=== PATIENT | female | born 1945 | race Caucasian/White ===

== ENCOUNTER → 2016-10-22 | Outpatient (CLI) | payer OTHER, MEDICARE | LOC: BMCIMAGING 09:14 | DX: Z12.31 Encounter for screening mammogram for malignant neoplasm of breast (principal); Z80.3 Family history of malignant neoplasm of breast | CPT/HCPCS: G0202 ==

== ENCOUNTER → 2016-11-06 | Outpatient (CLI) | payer OTHER, MEDICARE | LOC: BMCIMAGING 12:47 | DX: N60.01 Solitary cyst of right breast (principal) ==

== ENCOUNTER → 2017-04-15 | Outpatient (CLI) | payer OTHER, MEDICARE ==
[~2017-04-15] MED LIST: DEPO METHYLPREDNISOLONE 40 MG/ML SDV ONE; DEPO METHYLPREDNISOLONE 80 MG/ML SDV ONE; IOPAMIDOL (ISOVUE 370) 100 ML BTL IV ONE; LIDOCAINE 1% 300 MG/30 ML SDV ONE; ROPIVACAINE HCL 150 MG/30 ML INJ ONE
== END ==
LOC: FIMAGING 10:17
PROVIDERS: ATTEND Orthopaedic Surgery
PROC: 3E0U33Z Introduction of Anti-inflammatory into Joints, Percutaneous Approach (ICD-10-PCS; principal; 2017-04-15)
PROC: 3E0U3BZ Introduction of Anesthetic Agent into Joints, Percutaneous Approach (ICD-10-PCS; principal; 2017-04-15)
DX: M25.551 Pain in right hip (principal)
CPT/HCPCS: 20610; J1040; J2795; Q9967; J1030

== ENCOUNTER → 2017-11-01 | Outpatient (CLI) | payer OTHER, MEDICARE | LOC: FIMAGING 10:06 | PROVIDERS: ATTEND Orthopaedic Surgery | DX: M16.11 Unilateral primary osteoarthritis, right hip (principal); M46.96 Unspecified inflammatory spondylopathy, lumbar region; M46.97 Unspecified inflammatory spondylopathy, lumbosacral region ==

== ENCOUNTER 2017-11-05 05:59 | Inpatient (IN) | payer OTHER, MEDICARE ==
[2017-11-05] MEDS ORDERED: ROPIVACAINE 0.2% 80 MG, EPINEPHrine 0.2 MG, KETOROLAC TROMETHAMINE 30 MG in SYRINGE 0 ML IU ONE (06:00)
[2017-11-05] MEDS ORDERED: TRANEXAMIC ACID 3,000 MG in NS (SYRINGE) 50 ML IRR ONE (06:00)
[2017-11-05] MEDS ORDERED: BUPI/epINEPH/KETOROLAC IU ONE (06:00)
[2017-11-05] MEDS ORDERED: FAMOTIDINE 20 MG TAB PO ONE (06:15)
[2017-11-05] MEDS ORDERED: ceFAZolin 2 GM/SWFI 2 GM/20 ML SYR IVP ONE (06:15)
[2017-11-05] MEDS ORDERED: DEXAMETHASONE 4 MG/ML VIAL IVP ONE (06:15)
[2017-11-05] MEDS ORDERED: ACETAMINOPHEN 325 MG TAB PO ONE (06:15)
--- NOTE | 2017-11-05 06:28 | PDHPUP ---
History & Physical Update H&P update statement: This history and physical update is based on an assessment of the patient which was completed after admission or registration (within 24 hours), but prior to the surgery/procedure. H&P update: H&P reviewed & patient examined, no change in patient's condition since H&P completed
[2017-11-05] MEDS ORDERED: LR 1,000 ML IV ONE (06:43)
[2017-11-05] MEDS ORDERED: TRANEXAMIC ACID 3,000 MG/50 ML BAG IRR ONE (06:52)
[2017-11-05] MEDS ORDERED: MIDAZOLAM 2 MG/2 ML VIAL IVP ONE (07:27)
[2017-11-05] MEDS ORDERED: fentaNYL 100 MCG/2 ML INJ ONE ×2 (07:30→11:46)
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
[2017-11-05] MEDS ORDERED: PROPOFOL 200 MG/20 ML VIAL ONE ×2 (08:11→09:16)
[2017-11-05] MEDS ORDERED: GABAPENTIN 300 MG PO PRN (08:43)
[2017-11-05] MEDS ORDERED: ONDANSETRON DISINTEGRATING 4 MG TAB PO PRN (08:44)
[2017-11-05] MEDS ORDERED: METOCLOPRAMIDE 10 MG/2 ML VIAL IVP PRN (08:44)
[2017-11-05] MEDS ORDERED: BISACODYL 10 MG SUPP PR PRN (08:44)
[2017-11-05] MEDS ORDERED: MAGNESIUM HYDROXIDE 30 ML UDCUP PO PRN (08:44)
[2017-11-05] MEDS ORDERED: ONDANSETRON 4 MG/2 ML VIAL IVP PRN (08:44)
[2017-11-05] MEDS ORDERED: PROMETHAZINE HCL 25 MG/ML INJ IVP PRN (08:44)
[2017-11-05] MEDS ORDERED: diphenhydrAMINE 25 MG CAP PO PRN (08:44)
[2017-11-05] MEDS ORDERED: TEMAZEPAM 15 MG CAP PO PRN (08:44)
[2017-11-05] MEDS ORDERED: LACTULOSE 20 GM/30 ML UDCUP PO PRN (08:44)
[2017-11-05] MEDS ORDERED: POLYETHYLENE GLYCOL 3350 17 GM PKT PO PRN (08:44)
[2017-11-05] MEDS ORDERED: DIPHENOXYLATE/ATROPINE LOMOTIL 1 TAB PO PRN (08:44)
[2017-11-05] MEDS ORDERED: PROMETHAZINE HCL 25 MG SUPPR PR PRN (08:44)
[2017-11-05] MEDS ORDERED: fentaNYL 100 MCG/2 ML INJ IVP PRN (08:58)
[2017-11-05] MEDS ORDERED: NALOXONE HCL 0.4 MG/ML INJ IVP PRN (08:58)
[2017-11-05] MEDS ORDERED: LABETALOL HCL 5 MG/ML 20 ML MDV IVP PRN (08:58)
[2017-11-05] MEDS ORDERED: ALBUTEROL 3 ML DEYVIAL IH PRN (08:58)
[2017-11-05] MEDS ORDERED: MEPERIDINE 25 MG/ML SYR IVP PRN (08:58)
[2017-11-05] MEDS ORDERED: HYDROmorphONE/DILAUDID 1 MG/ML INJ IVP PRN (08:58)
[2017-11-05] MEDS ORDERED: LR 500 ML IV PRN (08:58)
[2017-11-05] MEDS ORDERED: LR 1,000 ML IV SCH (09:00)
[2017-11-05] MEDS ORDERED: HYDROmorphONE/DILAUDID 2 MG/ML INJ IVP PRN (09:25)
[2017-11-05] MEDS ORDERED: GABAPENTIN 300 MG CAP PO PRN (09:26)
--- NOTE | 2017-11-05 09:57 | POSTOPPROG ---
Post Op Note Date of Operation: 11/05/17 Surgeon: Sonny Christian Meat Manager: keshia christian Anesthesiologist: dr. alcantara Anesthesia: Spinal Pre-op Diagnosis: right hip OA Post-op Diagnosis: same Indication: right hip pain Procedure: R SRAVANI Findings: severe hip OA Inf/Abcess present in the surg proc area at time of surgery?: No EBL: 100-500
[2017-11-05] MEDS ORDERED: oxyCODONE IR 5 MG TAB ONE (11:47)
[2017-11-05] MEDS ORDERED: ACETAMINOPHEN 325 MG TAB ONE (11:47)
[2017-11-05] MEDS: ACETAMINOPHEN 325 MG TAB PO SCH ×2 (11:51→17:17)
[2017-11-05] MEDS: oxyCODONE IR 5 MG TAB PO PRN ×2 (11:56→21:18)
--- NOTE | 2017-11-05 11:58 | POSTANESTH ---
Post Anesthetic Evaluation Cardiovascular Status: Normal, Stable Respiratory Status: Normal, Stable Level of Consciousness/Mental Status: Can Participate in Eval Pain Control: Adequate, Prn Tx Ordered Nausea/Vomiting Control: Adequate, Prn Tx Ordered Complications Possibly Related to Anesthesia: None Noted
[2017-11-05] MEDS ORDERED: ceFAZolin 2 GM/DEXTROSE 100 ML IV SCH (14:00)
[2017-11-05] MEDS: CYCLOBENZAPRINE 10 MG TAB PO PRN (14:30)
[2017-11-05] MEDS: ASPIRIN 81 MG CHEWABLE TAB PO SCH ×2 (14:34→21:18)
[2017-11-05] MEDS: LISINOPRIL 10 MG TAB PO SCH (14:35)
[2017-11-05] MEDS: SENNOSIDES/DOCUSATE SODIUM TAB PO SCH ×2 (14:36→21:18)
--- NOTE | 2017-11-05 16:50 | PDMN ---
Medical Necessity Medical necessity: Pt meets IP criteria; [facility] IP only surgery; cpt 99419 R SRAVANI
[2017-11-05] MEDS: ceFAZolin 2 GM/SWFI 2 GM/20 ML SYR IVP SCH (17:18)
[2017-11-05] MEDS: FAMOTIDINE 20 MG TAB PO SCH (21:18)
[2017-11-06] MEDS: ACETAMINOPHEN 325 MG TAB PO SCH ×2 (00:02→05:47)
[2017-11-06] MEDS: ceFAZolin 2 GM/SWFI 2 GM/20 ML SYR IVP SCH (00:03)
[2017-11-06] MEDS: oxyCODONE IR 5 MG TAB PO PRN (02:31)
[2017-11-06] MEDS: CYCLOBENZAPRINE 10 MG TAB PO PRN ×2 (02:32→09:06)
[2017-11-06] MEDS ORDERED: LEVOTHYROXINE 75 MCG TAB PO SCH (06:00)
[2017-11-06 07:46] VITALS: BP 111/66; PULSE 76; RESP 16; TEMP 98.9
[2017-11-06] MEDS: LISINOPRIL 10 MG TAB PO SCH (09:06)
[2017-11-06] MEDS: SENNOSIDES/DOCUSATE SODIUM TAB PO SCH (09:06)
[2017-11-06] MEDS: ASPIRIN 81 MG CHEWABLE TAB PO SCH (09:06)
[2017-11-06] MEDS: FAMOTIDINE 20 MG TAB PO SCH (09:06)
[2017-11-06 10:07] VITALS: O2SAT 95
--- NOTE | 2017-11-06 10:31 | SOAPPROG ---
SOAP Progress Note Assessment/Plan: Assessment: Patient is doing well today POD 1 s/p R SRAVANI pain is well controlled. VTE ppx: recommend aspirin 81 mg BID for 4 weeks anemia: level expected initially postop, asymptomatic D/c planning: d/c to home today Plan: 11/06/17 10:30 11/06/17 10:30 Subjective: Karine is doing well today, denies SOB, chest pain and N/V. Objective: Vital Signs Temp Pulse Resp BP Pulse Ox 37.2 C 76 16 111/66 95 11/06/17 07:44 11/06/17 07:44 11/06/17 07:44 11/06/17 07:44 11/06/17 09:15 Laboratory Results 11/06/17 04:54 11/05/17 11/06/17 11/07/17 05:59 05:59 05:59 Intake Total 2795 Output Total 1450 Balance 1345 RLE:Incision dressing is clean and dry, NVI, +pf/df ICD10 Worksheet Patient Problems: Problems Problem Status Onset Primary localized osteoarthritis of right hip Acute
--- NOTE | 2017-11-06 10:59 | GDS ---
[f rep st] DISCHARGE SUMMARY ADMISSION DIAGNOSIS: Right hip osteoarthritis. DISCHARGE DIAGNOSIS: Right hip osteoarthritis. PROCEDURE: Right total hip arthroplasty. VTE PROPHYLAXIS: Recommend aspirin twice a day for 4 weeks. BRIEF DESCRIPTION OF HOSPITAL STAY: Patient was admitted for an elective joint arthroplasty. The pa elio tolerated the procedure well and has passed physical therapy. The patient was given appropriat e antibiotic prophylaxis and venous thromboembolism prophylaxis. The patient's pain was well control led on oral pain medication, patient was holding down food, and had urinated. Decision was made to d ischarge the patient. The patient was given post-operative prescriptions pre-operatively. PLAN: To follow up as scheduled at Dr. Selby's office November 29 at 9:45 a.m. /[id number]/MODL
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
== END 2017-11-06 11:13 | disposition home or self-care (01) | DRG 470 ==
LOC: F3N 05:59
PROVIDERS: ADMIT Orthopaedic Surgery; ATTEND Orthopaedic Surgery
DX: M16.11 Unilateral primary osteoarthritis, right hip (principal); E03.9 Hypothyroidism, unspecified; E78.00 Pure hypercholesterolemia, unspecified; I10 Essential (primary) hypertension
CPT/HCPCS: 97116-GP; 97161-GP; 97165-GO; G8978-GP-CJ; G8979-GP-CI; G8980-GP-CI; G8987-GO-CI; G8988-GO-CI; G8989-GO-CI; J0171; J0690; J1100; J1885; J2250; J2704; J2795; J3010

== ENCOUNTER → 2017-12-06 | Outpatient (CLI) | payer OTHER, MEDICARE | LOC: BMCIMAGING 07:55 | PROVIDERS: ATTEND Internal Medicine | DX: Z12.31 Encounter for screening mammogram for malignant neoplasm of breast (principal); Z80.3 Family history of malignant neoplasm of breast ==

== ENCOUNTER → 2017-12-10 | Outpatient (CLI) | payer OTHER, MEDICARE | LOC: BMCIMAGING 09:46 | PROVIDERS: ATTEND Internal Medicine | DX: R92.8 Other abnormal and inconclusive findings on diagnostic imaging of breast (principal) ==

== ENCOUNTER → 2018-06-20 | Outpatient (CLI) | payer OTHER, MEDICARE | LOC: BMCIMAGING 10:16 | PROVIDERS: ATTEND Internal Medicine | DX: R92.2 Inconclusive mammogram (principal) ==

== ENCOUNTER → 2018-12-28 | Outpatient (CLI) | payer OTHER, MEDICARE | LOC: BMCIMAGING 08:30 | PROVIDERS: ATTEND Internal Medicine | DX: Z12.31 Encounter for screening mammogram for malignant neoplasm of breast (principal); Z80.3 Family history of malignant neoplasm of breast ==